=== PATIENT | female | born 1985 | race Caucasian/White ===

== ENCOUNTER → 2019-07-12 07:53 | Outpatient (CLI) | payer BC, SELFPAY ==
--- NOTE | ~2019-07-12 | MM_ITS ---
EXAMINATION: MM diagnostic felicia LT w maribel HISTORY: Palpable left axillary abnormality TECHNIQUE: Additional 3-D tomosynthesis images of the left breast were performed and synthetic 2-D im ages were generated. CAD analysis was submitted and interpreted. High resolution limited left axillar y ultrasound was performed. COMPARISON: 08/14/2017 FINDINGS: MAMMOGRAPHIC FINDINGS: Breast composed of scattered areas of fibroglandular density. There are no suspicious masses, calcifi cations or architectural distortion to suggest malignancy. ULTRASOUND: There is a lymph node in the area of palpable concern in the left axilla measuring 1.7 cm greatest di mension with normal fatty hilum. No suspicious masses to suggest malignancy. IMPRESSION: 1. No evidence for malignancy in the left breast. 2. Recommend routine screening mammography in one year. BI-RADS Category 1: Negative Reviewed, dictated and finalized at location A. 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
--- NOTE | ~2019-07-12 | US_ITS ---
Please refer to diagnostic mammogram report dated 07/12/2019 for details. Reviewed, dictated and finalized at location A. [employer]
== END ==
PROVIDERS: Visit Provider Obstetrics & Gynecology Gynecology
DX: R92.8 Other abnormal and inconclusive findings on diagnostic imaging of breast (principal); N63.20 Unspecified lump in the left breast, unspecified quadrant; R92.2 Inconclusive mammogram
CPT/HCPCS: 76882; 77061; 77065; G0279

== ENCOUNTER 2022-12-10 11:19 | Outpatient (CLI) | payer BC, SELFPAY ==
--- NOTE | ~2022-12-10 | MMUS_ITS ---
EXAMINATION: MM diagnostic felicia BI w maribel, US breast LT limited HISTORY: Left axillary lump and lump near left nipple TECHNIQUE: ML, MLO, CC and rotated lateral CC 3-D tomosynthesis images of both breasts were performed and synthetic 2-D images were generated. CAD analysis was submitted and interpreted. High resolution limited left breast ultrasound examination at the areas of complaint of lump at left axilla and near nipple was performed. COMPARISON: 08/23/2019 left axillary ultrasound 07/12/2019 diagnostic left mammogram 11/10/2018 bilateral diagnostic mammogram BREAST PARENCHYMAL COMPOSITION: The breasts are almost entirely fatty. FINDINGS: MAMMOGRAPHIC FINDINGS: A skin marker was placed over the area of clinical complaint of left breast lump near the nipple. The marker is near the left lateral periareolar area. There is underlying adipose tissue. No underlying mass or architectural distortion, malignant calcification or any associated skin thickening or retrac tion is evident. No suspicious mass, architectural distortion, malignant calcification, skin thickening or retraction of either breast is evident. ULTRASOUND: At the area of clinical complaint of lump at 3:00 near the nipple there is a 4 x 3.5 x 5 mm hypoechoi c area with some posterior shadowing noted. Ultrasound-guided biopsy is recommended considering that this corresponds to the patient's complaint of palpable lump and there is some posterior shadowing. No mass or suspicious shadowing is identified in the left axillary area. IMPRESSION: 1. 4 x 3.5 x 5 mm hypoechoic lesion with posterior shadowing at 3:00 near the nipple, corresponding t o the patient's complaint of lump. 2. Ultrasound-guided biopsy of left breast 3:00 lesion near nipple is recommended BI-RADS category 4, suspicious findings. Dr. Zheng telephoned the report and ultrasound-guided biopsy recommendation of left breast at 3:00 on December 10, [address] [employer] [place]. Reviewed, dictated and finalized at location A. IMPRESSION: 1. 4 x 3.5 x 5 mm hypoechoic lesion with posterior shadowing at 3:00 near the n ipple, corresponding to the patient's complaint of lump. 2. Ultrasound-guided biopsy of left breast 3:00 lesion near nipple is recommend ed BI-RADS category [address], [address] Zheng telephoned the report and ultrasound-guided biopsy recommendation of l eft breast at 3:00 on December 10, [address] [facility].
== END 2022-12-10 11:20 | disposition home or self-care (01) ==
PROVIDERS: Visit Provider Obstetrics & Gynecology Gynecology
DX: N63.20 Unspecified lump in the left breast, unspecified quadrant (principal)
CPT/HCPCS: 76642; 77062; 77066; G0279